=== PATIENT | male | born 1965 | race African-American/Black ===

== ENCOUNTER 2020-11-03 22:16 | Emergency (ER) | payer OTHER ==
[~2020-11-03] VITALS: Ht 180.3 cm; Wt 90.0 kg
--- NOTE | 2020-11-03 22:31 | PHYS DOC ---
General Adult EDM: Chief Complaint: DIZZY/LIGHT HEADED HPI: HPI: Patient is a 55 year old male with a past medical history of hypertension, gout, and weekend drinker presents with the chief complaint of dizziness and bloody stool. Patient states bloody stools started today--- 2 episodes of bright red bloody stool and 1 episodes of dark stool. Patient states stool is loose. He states only has abdominal discomfort when trying not to have a BM. Denies associated nausea or vomiting, chest pain or shortness of breath. Dizziness/Lightheaded with standing/walking. Review of Systems: Review of Systems: Review of systems: Constitutional symptoms- No fever, no chills. Eyes- No Discharge, No Visual Loss Respiratory symptoms- No shortness of breath, No wheezing, No Dyspnea on Ex ertion Cardiovascular Systems; No chest pain, No Palpitations, No syncope Gastrointestinal symptoms: Positive abdominal pain, no nausea, no vomiting positive diarrhea. Positive bloody stool Genitourinary symptoms: No dysuria. Musculoskeletal symptoms: No back pain No extremity pain. NEUROLOGICAL Symptoms: No headache, no generalized weakness; No focal Weakness positive dizziness Heart Score: C/O Chest Pain: No Risk Factors: Risk Factors: DM, Current or recent (<one month) smoker, HTN, HLP, family history of CAD, obesity. Risk Scores: Score 0 - 3: 2.5% MACE over next 6 weeks - Discharge Home Score 4 - 6: 20.3% MACE over next 6 weeks - Admit for Clinical Observation Score 7 - 10: 72.7% MACE over next 6 weeks - Early Invasive Strategies Physical Exam: PE: General: alert, no acute distress. Skin: warm, dry and intact. Head:: Normocephalic, atraumatic. Neck: Trachea midline. Eyes: EOMI, Normal conjunctiva, No drainage CARDIOVASCULAR: Tachycardia RESPIRATORY: No respiratory distress Back: Full range of motion. MUSCULOSKELETAL: Full range of motion of bilateral upper and lower extremities. GASTROINTESTINAL: Abdomen soft without rebound or guarding.--- patient declined rectal exam NEUROLOGICAL: Alert and noted to person, place and time. No neurological deficits observed Psychiatric: Cooperative. Normal judgment EKG: EKG: SINUS TACHYCARDIA RATE 120 NO STEMI [] Radiology/Procedures: Radiology/Procedures: [] Impression: CT abdomen and pelvis without contrast: Reason for examination: Abdominal pain with bloody stool. Helical images were obtained through the abdomen and pelvis with no intravenous or oral contrast. Reconstruction was performed in sagittal and coronal planes. Exposure: One or more of the following individualized dose reduction techniques were utilized for this examination: 1. Automated exposure control 2. Adjustment of the mA and/or kV according to patient size 3. Use of iterative reconstruction technique. The lung bases are clear. The heart size is normal with no pericardial effusion. There are hepatic granuloma present. Splenic granuloma are present. No abnormalities are seen at the adrenal glands, gallbladder or pancreas. The abdominal aorta and inferior vena cava show no acute abnormalities. There is some diverticulosis in the proximal sigmoid colon but no evidence of diverticulitis or colitis. The small intestinal tract shows no abnormal dilatation or wall thickening. There is large amount of fluid in the stomach been no gastric wall thickening or apparent gastric obstruction is seen. The kidneys show a small hypodense lesion probably representing a cyst at the upper pole of the left kidney. There are no other renal masses, renal calculi, hydronephrosis or evidence of obstructive uropathy. No abnormality seen at the bladder, prostate gland or seminal vesicles. No free fluid or free air seen in the abdomen or pelvis. No acute bony abnormalities are seen. IMPRESSION: Diverticulosis in the sigmoid colon without diverticulitis. Small hypodense lesion consistent with a probable cyst at the upper pole the left kidney. Course & Med Decision Making: Course & Med Decision Making Pertinent Labs and Imaging studies reviewed. (See chart for details) [] Patient was evaluated for chief complaint. Work-up consisted of laboratory analysis and radiologic imaging. His old reviewed and discussed with patient. Patient found to have a creatinine greater than 2. Patient states history of el evated creatinine [facility] advised to increase p.o. fluids. Patient without previous PMC labs. Unable to compare to previous. Patient unaware of baseline creatinine but again states he has a known history of kidney dysfunction. CT abdomen pelvis diverticulosis without diverticulitis. Treatment included 1 L of IV fluid. Patient's heart rate improved from the 120s to the 90s. Patient states he had 2 episode of bloody stool while in the emergency department. Patient's hemoglobin is 10. Denies any dizziness. Discussed hospitalization for further evaluation. Patient declined admission and requested to be discharged. Discussed risk of continued bleeding and benefits of admission. Patient advised to return to ER for continued/worsening bloody stool or dizziness. Dragon Disclaimer: Dragon Disclaimer: This electronic medical record was generated, in whole or in part, using a voice recognition dictation system. Departure Departure Impression: Primary Impression: Bloody stool Additional Impressions: Diarrhea CKD (chronic kidney disease) Disposition: 01 DC HOME SELF CARE/HOMELESS Condition: STABLE Referrals: NO PCP (PCP) Patient Instructions: Bloody Diarrhea Scripts Ciprofloxacin Hcl (CIPRO) 500 Mg Tablet 1 TAB PO BID for 7 Days, #14 TAB 0 Refills Prov: ASHWINI ZEPEDA DO 11/04/20 ASHWINI ZEPEDA DO Nov 03, 2020 22:31
[2020-11-03] MEDS: IV NORMAL SALINE 1000ML BAG 1,000 ML IV ONE (22:35)
[2020-11-03 22:43] LABS: BASO # 0.2 x10^3/uL (0.0-0.2); BASO % 1 % (0-3); EOS # 0.5 x10^3/uL (0.0-0.7); EOS % 3 % (0-3); HEMATOCRIT 30.1 % (39.0-53.0); HEMOGLOBIN 10.2 g/dL (13.0-17.5); LYMPH # 3.1 x10^3/uL (1.0-4.8); LYMPH % 20 % (24-48); MEAN CORPUSCULAR HEMOGLOBIN 33 pg (25-35); MEAN CORPUSCULAR HGB CONC 34 g/dL (31-37); MEAN CORPUSCULAR VOLUME 97 fL (79-100); MONO # 0.9 x10^3/uL (0.0-1.1); MONO % 6 % (0-9); NEUT % 70 % (31-73); PLATELET COUNT 216 x10^3/uL (140-400); RED BLOOD COUNT 3.11 x10^6/uL (4.30-5.70); RED CELL DISTRIBUTION WIDTH 13.8 % (11.5-14.5); WHITE BLOOD COUNT 15.6 x10^3/uL (4.0-11.0)
[2020-11-03 22:52] LABS: CALCIUM 8.3 mg/dL (8.5-10.1); CREATININE 2.1 mg/dL (0.7-1.3); POTASSIUM 3.4 mmol/L (3.5-5.1)
[2020-11-03 22:57] LABS: ALBUMIN 3.1 g/dL (3.4-5.0); ALBUMIN/GLOBULIN RATIO 0.9 (1.0-1.7); TOTAL BILIRUBIN 0.4 mg/dL (0.2-1.0); TOTAL PROTEIN 6.5 g/dL (6.4-8.2)
--- NOTE | 2020-11-03 23:25 | EKG ---
[facility] [address] [place] [address] Test Date: 2020-11-03 Test Time: 22:26:03 Pat Name: JOHANNA BAEZA Department: Room: Gender: M Surveyor'S Assistant: : 1965 Requested By: ASHWINI ZEPEDA Order Number: [id number] Reading MD: Measurements Intervals [place] Rate: 120 P: 246 DC: 98 QRS: 43 QRSD: 84 T: 57 QT: 306 QTc: 437 Interpretive Statements SUPRAVENTRICULAR RHYTHM QRS(T) CONTOUR ABNORMALITY CONSISTENT WITH INFERIOR INFARCT PROBABLY OLD ABNORMAL ECG RI6.02 No previous ECG available for comparison
--- NOTE | 2020-11-04 00:04 | RAD ---
CT abdomen and pelvis without contrast: Reason for examination: Abdominal pain with bloody stool. Helical images were obtained through the abdomen and pelvis with no intravenous or oral contrast. Rec onstruction was performed in sagittal and coronal planes. Exposure: One or more of the following individualized dose reduction techniques were utilized for thi s examination: 1. Automated exposure control 2. Adjustment of the mA and/or kV according to patient size 3. Use of iterative reconstruction technique. The lung bases are clear. The heart size is normal with no pericardial effusion. There are hepatic granuloma present. Splenic granuloma are present. No abnormalities are seen at the adrenal glands, gallbladder or pancreas. The abdominal aorta and inferior vena cava show no acute abn ormalities. There is some diverticulosis in the proximal sigmoid colon but no evidence of diverticuli tis or colitis. The small intestinal tract shows no abnormal dilatation or wall thickening. There is large amount of fluid in the stomach been no gastric wall thickening or apparent gastric obstruction is seen. The kidneys show a small hypodense lesion probably representing a cyst at the upper pole of the left kidney. There are no other renal masses, renal calculi, hydronephrosis or evidence of obstru ctive uropathy. No abnormality seen at the bladder, prostate gland or seminal vesicles. No free fluid or free air see n in the abdomen or pelvis. No acute bony abnormalities are seen. IMPRESSION: Diverticulosis in the sigmoid colon without diverticulitis. Small hypodense lesion consistent with a probable cyst at the upper pole the left kidney. Electronically signed by: Moriah Smith MD (11/04/2020 12:02 AM) [facility]
[2020-11-04 00:22] VITALS: BP 118/78
[2020-11-04] MEDS ORDERED: CIPR500T94 PO (00:28)
== END 2020-11-04 00:30 | disposition home or self-care (01) ==
LOC: ER 22:16
DX: K92.1 Melena (principal); R19.7 Diarrhea, unspecified; R42 Dizziness and giddiness; I12.9 Hypertensive chronic kidney disease with stage 1 through stage 4 chronic kidney disease, or unspecified chronic kidney disease; N18.9 Chronic kidney disease, unspecified
CPT/HCPCS: 36415; 74176; 80053; 84484; 85025; 93005; 96360; 99285; J7030